=== PATIENT | female | born 1985 | race Caucasian/White ===

== ENCOUNTER 2017-10-18 16:50 | Emergency (ER) | payer MEDICAID, OTHER ==
[2017-10-18 16:50] VITALS: BMI 29.2
[2017-10-18 17:22] VITALS: RESP 18; O2SAT 100
--- NOTE | 2017-10-18 20:21 | C.PDOC ---
History Of Present Illness 32-year-old female, presents to the emergency department with complaints of cough that is associated with runny nose and fever x3 days. She has sick contacts at home. Denies any traveling, hemoptysis, chest pain or shortness of breath. Time Seen by Provider: 10/18/17 19:13 Chief Complaint (Nursing): Cough, Cold, Congestion Past Medical History Reviewed: Historical Data, Nursing Documentation, Vital Signs Vital Signs: Last Vital Signs Temp 98.4 F 10/18/17 20:36 Pulse 74 10/18/17 20:36 Resp 18 10/18/17 20:36 BP 112/80 10/18/17 20:36 Pulse Ox 100 10/18/17 20:43 - [facility] Procedures APPLICATION OF SPLINT (08/07/14) LOW CERVICAL (10/14/13) Family History: States: No Known Family Hx - Social History Hx Tobacco Use: No Hx Alcohol Use: Yes Hx Substance Use: No - Immunization History Hx Tetanus Toxoid Vaccination: No Hx Influenza Vaccination: No Hx Pneumococcal Vaccination: No Review Of Systems Except As Marked, All Systems Reviewed And Found Negative. Constitutional: Positive for: Fever ENT: Positive for: Nose Discharge Respiratory: Negative for: Shortness of Breath Gastrointestinal: Negative for: Nausea, Vomiting, Abdominal Pain, Diarrhea Skin: Negative for: Rash Neurological: Negative for: Headache, Dizziness Physical Exam - Physical Exam Appears: Non-toxic, No Acute Distress Skin: Warm, Dry, No Rash Head: Atraumatic, Normacephalic Eye(s): bilateral: Normal Inspection Ear(s): Bilateral: Normal Nose: Normal Oral Mucosa: Moist Lips: Normal Appearing Throat: No Erythema, No Exudate Neck: Normal ROM, Supple Chest: Symmetrical Cardiovascular: Rhythm Regular, No Murmur Respiratory: Normal Breath Sounds, No Accessory Muscle Use, No Stridor, No Wheezing Gastrointestinal/Abdominal: Soft, No Tenderness Back: Normal Inspection, No CVA Tenderness Extremity: Normal ROM, No Swelling Neurological/Psych: Oriented x3, Normal Speech Gait: Steady ED Course And Treatment O2 Sat by Pulse Oximetry: 100 (on RA) Pulse Ox Interpretation: Normal Disposition - Disposition Referrals: [facility] [Outside] Disposition: HOME/ ROUTINE Disposition Time: 19:45 Condition: GOOD Additional Instructions: Follow up with the medical doctor/clinic within 1-2 days without fail. Return if worsened. Prescriptions: Ibuprofen [Motrin] 1 tab PO TID PRN #30 tab PRN Reason: Pain Loratadine [Claritin] 10 mg PO DAILY #10 tab predniSONE [Prednisone] 20 mg PO BID #10 tab Instructions: Upper Respiratory Infection (ED) Forms: [employer] (Cuban) - Clinical Impression Clinical Impression: Upper respiratory infection - Scribe Statement The provider has reviewed the documentation as recorded by the Scribe (Bret Bass) All medical record entries made by the Scribe were at my direction and personally dictated by me. I have reviewed the chart and agree that the record accurately reflects my personal performance of the history, physical exam, medical decision making, and the department course for this patient. I have also personally directed, reviewed, and agree with the discharge instructions and disposition.
[2017-10-18 20:37] VITALS: BP 112/80; PULSE 74; TEMP 98.4
--- NOTE | 2017-10-19 08:56 | RAD ---
Chest x-ray two views History: Cough and fever. Comparison: None available. Findings: No focal infiltrate or effusion. Bibasilar breast and nipple shadows. Heart size within normal limits. Impression: No focal infiltrate or effusion.
== END 2017-10-18 20:37 | disposition home or self-care (01) ==
LOC: C.ER 16:50
DX: J06.9 Acute upper respiratory infection, unspecified (principal)

== ENCOUNTER 2018-04-20 17:58 | Emergency (ER) | payer MEDICAID ==
[2018-04-20 17:59] VITALS: BMI 29.2
[2018-04-20 18:18] VITALS: BP 119/71; PULSE 75; RESP 16; TEMP 98.4; O2SAT 98
--- NOTE | 2018-04-20 18:52 | C.PDOC ---
History Of Present Illness 32 year old female presents to the ED for evaluation of left ear pain which began 2 days ago. Notes she itching and ringing to the ear. Patient denies fever , chills, change in hearing, headache, or ear discharge. Time Seen by Provider: 04/20/18 18:26 Chief Complaint (Nursing): ENT Problem History Per: Patient History/Exam Limitations: None Onset/Duration Of Symptoms: Days (2) Current Symptoms Are (Timing): Still Present Quality (Ear): Pain W/Touch (left). denies: Discharge Past Medical History Vital Signs: Last Vital Signs Temp 98.4 F 04/20/18 18:17 Pulse 75 04/20/18 18:17 Resp 16 04/20/18 18:17 BP 119/71 04/20/18 18:17 Pulse Ox 98 04/20/18 19:50 - [facility] Procedures APPLICATION OF SPLINT (08/07/14) LOW CERVICAL (10/14/13) Family History: States: Unknown Family Hx - Social History Hx Tobacco Use: No Hx Alcohol Use: Yes Hx Substance Use: No - Immunization History Hx Tetanus Toxoid Vaccination: No Hx Influenza Vaccination: No Hx Pneumococcal Vaccination: No Review Of Systems Constitutional: Negative for: Fever, Chills ENT: Positive for: Ear Pain (left). Negative for: Ear Discharge Physical Exam - Physical Exam Appears: Non-toxic, No Acute Distress Skin: Normal Color, Warm, Dry Head: Atraumatic, Normacephalic Eye(s): bilateral: Normal Inspection, EOMI Ear(s): Left: TM Erythema, Right: Normal Nose: Normal, No Discharge Oral Mucosa: Moist Throat: Normal, No Erythema, No Exudate Neck: Normal ROM, Supple Chest: Symmetrical, No Deformity Cardiovascular: Rhythm Regular Respiratory: Normal Breath Sounds, No Rales, No Rhonchi, No Wheezing Extremity: Normal ROM Neurological/Psych: Oriented x3, Normal Speech, Normal Cognition ED Course And Treatment O2 Sat by Pulse Oximetry: 98 (on RA) Progress Note: Amoxicillin PO and Motrin PO given. On re-evaluation, patient is resting comfortably, showing no signs of distress and is stable for discharge. Patient is advised to follow up with her PMD within 1-2 days for further evaluation. Disposition - Disposition Referrals: Jaylen Jha MD [Staff Provider] - Disposition: HOME/ ROUTINE Disposition Time: 18:49 Condition: STABLE Additional Instructions: Vaya a tomlinson mdico o la clnica en 2-5 coffman sin falta, para mas evaluacin. [place] los medicamentos nicholas indicado. Volver a la ketan de emergencia en cualquier momento si los sntomas persisten o empeoran. 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 - Scribe Statement The provider has reviewed the documentation as recorded by the Scribe (Vicki Rivero) All medical record entries made by the Scribe were at my direction and personally dictated by me. I have reviewed the chart and agree that the record accurately reflects my personal performance of the history, physical exam, medical decision making, and the department course for this patient. I have also personally directed, reviewed, and agree with the discharge instructions and disposition.
== END 2018-04-20 19:15 | disposition home or self-care (01) ==
LOC: C.ER 17:58
DX: H66.92 Otitis media, unspecified, left ear (principal)